=== PATIENT | male | born 1980 | race Hispanic/Latino ===

== ENCOUNTER 2017-06-04 09:21 | Emergency (ER) | payer OTHER ==
[~2017-06-04] VITALS: Ht 167.6 cm; Wt 85.7 kg
[~2017-06-04 09:21] MED LIST: BACTRIM DS1 TAB PO; LISINOPRIL5 MG PO; NORCO1 TA1 PO; ZESTRIL5 M1 PO
[2017-06-04] MEDS ORDERED: MOTRIN800 MG PO (09:45)
[2017-06-04] MEDS ORDERED: ZITHROMAX250 MG PO (09:45)
[2017-06-04] MEDS ORDERED: TESSALON PER100 MG PO (09:45)
[2017-06-04] MEDS ORDERED: PREDNISONE50 MG PO (09:45)
[2017-06-04 10:00] VITALS: BP 120/68
== END 2017-06-04 10:43 | disposition home or self-care (01) | DRG 203 ==
LOC: ED 09:21
DX: J40 Bronchitis, not specified as acute or chronic (principal); R05 Cough; R09.81 Nasal congestion; R09.89 Other specified symptoms and signs involving the circulatory and respiratory systems; R50.9 Fever, unspecified

== ENCOUNTER 2018-02-24 11:03 | Emergency (ER) | payer SELFPAY ==
[~2018-02-24] VITALS: Ht 167.6 cm; Wt 86.0 kg
[~2018-02-24 11:03] MED LIST changes: +MOTRIN800 MG PO; +PREDNISONE50 MG PO; +TESSALON PER100 MG PO; +ZITHROMAX250 MG PO
[2018-02-24 11:53] LABS: INFLUENZA A NONE DETECTED (NONE DETECT); INFLUENZA B NONE DETECTED (NONE DETECT)
[2018-02-24] MEDS ORDERED: TESSALON PER100 MG PO (12:44)
[2018-02-24 12:54] VITALS: BP 139/85
== END 2018-02-24 12:58 | disposition home or self-care (01) | DRG 866 ==
LOC: ED 11:03
DX: B34.9 Viral infection, unspecified (principal); R09.81 Nasal congestion; R05 Cough

== ENCOUNTER 2020-09-08 13:46 | Emergency (ER) | payer OTHER ==
[2020-09-08] MEDS ORDERED: ZOFRAN4 MG/TAB PO (14:25)
[2020-09-08] MEDS ORDERED: ZPAK PO (15:07)
[2020-09-08] MEDS ORDERED: DECADRON2 MG PO (15:07)
[2020-09-08 15:24] VITALS: BP 136/74
== END 2020-09-08 15:24 | disposition home or self-care (01) | DRG 179 ==
LOC: ED 13:46
DX: U07.1 COVID-19 (principal)

== ENCOUNTER 2020-09-15 18:40 | Observation (INO) | payer SELFPAY ==
[~2020-09-15] VITALS: Ht 162.6 cm; Wt 79.0 kg
[~2020-09-15 18:40] MED LIST changes: +DECADRON2 MG PO; +ZOFRAN4 MG/TAB PO; +ZPAK PO
--- NOTE | 2020-09-15 19:05 | NUR ---
PT AMBULATED TO ROOM WITH STEADY GAIT FOR BEDSIDE TRIAGE
--- NOTE | 2020-09-15 19:31 | NUR ---
LAB AT [facility] FOR BLOOD DRAW AND STREP SWAB COLLECTED PT ALREADY TESTED AND KNOWN POSITIVE FOR COVID.
[2020-09-15 19:43] LABS: URINE BILIRUBIN - DIPSTICK NEGATIVE (NEGATIVE); URINE BLOOD DIPSTICK NEGATIVE (NEGATIVE); URINE COLOR YELLOW; URINE GLUCOSE - DIPSTICK >=1000 mg/dL (NEGATIVE); URINE KETONE 40 mg/dL (NEGATIVE); URINE LEUK ESTERASE NEGATIVE (NEGATIVE); URINE PROTEIN - DIPSTICK NEGATIVE (NEG-TRACE); URINE SPECIFIC GRAVITY <=1.005; URINE UROBILINOGEN - DIPSTICK 0.2 E.U./dL (0.2)
[2020-09-15 19:44] LABS: URINE NITRITE - DIPSTICK NEGATIVE (Negative)
[2020-09-15 19:54] LABS: ALBUMIN 4.5 g/dL (3.2-5.0); BUN 8 mg/dL (9-20); BUN/CREATININE RATIO 15 (12-20 (CALC)); CARBON DIOXIDE 22 mmol/l (22-30); CREATININE 0.5 mg/dL (0.7-1.3); GFR > 60 ML/MIN (>=60 (CALC)); GFR FOR AFR.AMER. > 60 ML/MIN (>=60 (CALC)); POTASSIUM 3.8 mmol/l (3.5-5.1); TOTAL PROTEIN 8.2 g/dL (6.3-8.2)
[2020-09-15 19:56] LABS: ALKALINE PHOSPHATASE 175 u/l (38-126); ANION GAP 20 (6-22 (CALC)); BILIRUBIN, TOTAL 1.2 mg/dL (0.0-1.4); CHLORIDE 89 mmol/l (95-108); SGOT/AST 127 u/l (17-59); SODIUM 127 mmol/l (137-146)
--- NOTE | 2020-09-15 20:04 | NUR ---
PT PROVIDED URINE SPECIMEN BUT ALSO VOIDED 900 ML CLEAR YELLO URINE AND STATES THATS FREQUENT AT HOME.
[2020-09-15 20:07] LABS: HEMOGLOBIN 14.2 g/dl (14.0-18.0); IMMATURE GRANULOCYTES 0.5 % (0.0-5.0); MEAN CELL VOLUME 94.3 fL CALC (80.0-100.0); MEAN CORPUSCULAR HGB 32.6 pG CALC (26.0-32.0); MEAN CORPUSCULAR HGB CONC 34.6 g/dL CAL (32.0-36.0); NEUT# 2.92 thou/uL (1.82-7.42); RED BLOOD COUNT 4.35 mill/uL (4.70-6.10); RED CELL DISTRI WIDTH 12.6 % (11.5-15.5)
--- NOTE | 2020-09-15 20:40 | NUR ---
PT RESTING IV STARTED WITHOUT INCIDENT AND IVF INFUSING.NO OTHER COMPLAINTS OFFERED.
--- NOTE | 2020-09-15 21:31 | NUR ---
PT TOLERATING IVF W/O INCIDENT,AWARE OF PLANNED ADMISSION AND NEW ONSET DIABETES. WILL REINFORCE EDUCATION
--- NOTE | 2020-09-15 22:22 | NUR ---
REPORT CALLED TO [facility] ROOM 269 ASSIGNED.
--- NOTE | 2020-09-15 22:55 | NUR ---
PT TRANSPORTED TO MED SURG VIA WHEELCHAIR, ALL BELONGINGS SENT WITH PATIENT.
[2020-09-15 23:15] VITALS: BP 154/89
--- NOTE | 2020-09-16 | NUR ---
PATIENT ADMITTED FROM ER VIA WHEELCHAIR WITH ER STAFF IN ATTENDANCE. PATIENT IS AWAKE ALERT AND ORIENTEDX3. PATIENT ADMITTED FOR NEW ONSET DIAB. SYRIAN SPEAKING BUT DOES UNDERSTAND GERMAN. PATIENT STATES THAT HE CAME TO THE ER TONIGHT BECAUSE HE HAS BEEN HAVING SEVERE THRIST THAT HE COULDN'T QUENCH AND FREQUENT URINATION. ALSO HAS LOST SOME WEIGHT OVER LAST FEW WEEKS. WAS DX WITH COVID LAST WQEEK-FINISHED HIS MEDS AND COVID TESTING IN ER WAS NEG. ACCU-CHECK UPON ARRIVAL TO FLOOR WAS 330. MEDICATED WITH HUMALOG 7UNITS PER SLIDING SCALE COVERAGE PROTOCOL. PATIENT MEDICATED WITH SCHEDULED INSULIN WELL. IVF NS HUNG AND INFUSING VIA LEFT FOREARM SITE ORDERED. PROVIDED TURKEY AND CHEESE SANDWICH WITH DIET SODA AND ORANGE. LUNGS ARE CLEAR. ABD IS SOFT WITH ACTIVE BS-LAST BM WAS 09/15/20. ORIENTED TO ROOM AND SURROUNDINGS. INSTRUCTED ON USE OF NURSE CALL LIGHT SYSTEM, TV REMOTE AND PHONE. SAFETY PRECAUTIONS REINFORCED. CALL LIGHT IN REACH. WILL CONT TO MONITOR.
[2020-09-16 03:30] VITALS: BP 114/67
--- NOTE | 2020-09-16 05:05 | NUR ---
PATIENT APPEARS SLEEPING WITH EYES CLOSED AT THIS TIME. RESPS ARE EVEN AND UNLABORED. IVF PATENT AND INFUSING VIA LEFT FOREARM SITE ORDERED. ACCU-CHECK WAS 276. CALL LIGHT IN REACH. WILL CONT TO MONITOR.
[2020-09-16 05:57] LABS: HEMATOCRIT 37.2 % (39.0-50.0); HEMOGLOBIN 12.8 g/dl (14.0-18.0); IMMATURE GRANULOCYTES 0.5 % (0.0-5.0); MEAN CELL VOLUME 94.7 fL CALC (80.0-100.0); MEAN CORPUSCULAR HGB 32.6 pG CALC (26.0-32.0); MEAN CORPUSCULAR HGB CONC 34.4 g/dL CAL (32.0-36.0); NEUT# 1.54 thou/uL (1.82-7.42); RED BLOOD COUNT 3.93 mill/uL (4.70-6.10); RED CELL DISTRI WIDTH 12.8 % (11.5-15.5)
[2020-09-16 06:18] LABS: ALKALINE PHOSPHATASE 125 u/l (38-126); BILIRUBIN, TOTAL 1.1 mg/dL (0.0-1.4); BUN 7 mg/dL (9-20); BUN/CREATININE RATIO 16 (12-20 (CALC)); CARBON DIOXIDE 25 mmol/l (22-30); CREATININE 0.5 mg/dL (0.7-1.3); GFR > 60 ML/MIN (>=60 (CALC)); GFR FOR AFR.AMER. > 60 ML/MIN (>=60 (CALC)); HDL CHOLESTEROL 14 mg/dL (>=40); POTASSIUM 3.1 mmol/l (3.5-5.1); SGOT/AST 96 u/l (17-59); SODIUM 133 mmol/l (137-146); TOTAL CHOLESTEROL 191 mg/dl (0-199); TOTAL PROTEIN 6.6 g/dL (6.3-8.2)
[2020-09-16 06:28] LABS: ALBUMIN 3.5 g/dL (3.2-5.0); ANION GAP 11 (6-22 (CALC)); CHLORIDE 100 mmol/l (95-108); TOTAL TRIGLYCERIDES 576 mg/dl (30-149)
[2020-09-16 07:18] VITALS: BP 131/78
--- NOTE | 2020-09-16 07:57 | NUR ---
REPORT RECEIVED FROM JET C[place]. PT RESTING IN BED SEMIFOWLERS; ALERT AND ORIENTED X 3. DENIES PAIN AND SOB. RESPIRATIONS EVEN AND UNLABORED ON ROOM AIR. IV FLUIDS INFUSING WITHOUT DIFFICULTY; IV SITE APPEARS HEALTHY. ACCU CHECK 270. ASSESSMENT WNL. POC REVIEWED; PT ENCOURAGED TO VERBALIZE CONCERNS; STATES UNDERSTANDING. SAFETY MEASURES IN PLACE. CALL LIGHT WITHIN REACH.
--- NOTE | 2020-09-16 09:45 | NUR ---
AND KARLENE MARTINEZ AT BEDSIDE.
[2020-09-16] MEDS ORDERED: TRIGLIDE160 MG PO (12:07)
[2020-09-16] MEDS ORDERED: METFORMIN500 M2 PO (12:07)
[2020-09-16] MEDS ORDERED: GLUCOTROL XL10 MG PO (12:07)
--- NOTE | 2020-09-16 12:22 | NUR ---
PT IS INDEPENDENT IN ROOM. NO CHANGES IN CONDITION. 5 UNITS OF SLIDING SCALE COVERAGE GIVEN PRIOR TO LUNCH FOR FSBG OF 298. SAFETY MEASURES IN PLACE. CALL LIGHT WITHIN REACH.
--- NOTE | 2020-09-16 12:34 | NUR ---
IV site discontinued, cath intact. No edema , no redness, voices no discomfort.
--- NOTE | 2020-09-16 12:45 | NUR ---
Discharge instructions given with pastor and education printed in senegalese. Patient verbalizes understanding of same. Discharged in stable condition via Ambulatory to Home. All belongings sent with pt.
== END 2020-09-16 12:45 | disposition home or self-care (01) | DRG 639 ==
LOC: ED 18:40 → ED-I 20:32 → ED 20:44 → MS2 20:45
PROVIDERS: Family Medicine; ADMIT Internal Medicine; ATTEND Internal Medicine
DX: E11.65 Type 2 diabetes mellitus with hyperglycemia (principal); E87.6 Hypokalemia; E78.1 Pure hyperglyceridemia; R74.8 Abnormal levels of other serum enzymes; Z86.16 Personal history of COVID-19; Z20.822 Contact with and (suspected) exposure to COVID-19
CPT/HCPCS: G0378; J1650

== ENCOUNTER 2020-09-27 21:32 | Emergency (ER) | payer SELFPAY ==
[~2020-09-27] VITALS: Ht 162.6 cm; Wt 79.0 kg
[~2020-09-27 21:32] MED LIST changes: +GLUCOTROL XL10 MG PO; +METFORMIN500 M2 PO; +TRIGLIDE160 MG PO
[2020-09-27 22:46] LABS: HEMATOCRIT 39.1 % (39.0-50.0); HEMOGLOBIN 13.1 g/dl (14.0-18.0); IMMATURE GRANULOCYTES 0.2 % (0.0-5.0); MEAN CELL VOLUME 96.5 fL CALC (80.0-100.0); MEAN CORPUSCULAR HGB 32.3 pG CALC (26.0-32.0); MEAN CORPUSCULAR HGB CONC 33.5 g/dL CAL (32.0-36.0); NEUT# 2.33 thou/uL (1.82-7.42); RED BLOOD COUNT 4.05 mill/uL (4.70-6.10); RED CELL DISTRI WIDTH 13.2 % (11.5-15.5)
[2020-09-27 23:04] LABS: ALBUMIN 4.1 g/dL (3.2-5.0); ALKALINE PHOSPHATASE 125 u/l (38-126); BUN 10 mg/dL (9-20); BUN/CREATININE RATIO 13 (12-20 (CALC)); CARBON DIOXIDE 29 mmol/l (22-30); CHLORIDE 95 mmol/l (95-108); CREATININE 0.8 mg/dL (0.7-1.3); GFR > 60 ML/MIN (>=60 (CALC)); GFR FOR AFR.AMER. > 60 ML/MIN (>=60 (CALC)); SGOT/AST 81 u/l (17-59); SODIUM 133 mmol/l (137-146); TOTAL PROTEIN 7.8 g/dL (6.3-8.2)
[2020-09-27 23:16] LABS: ANION GAP 13 (6-22 (CALC)); POTASSIUM 3.9 mmol/l (3.5-5.1)
[2020-09-28] MEDS ORDERED: GENTAMICIN SULF5 ML OD (00:10)
[2020-09-28 01:00] VITALS: BP 130/70
== END 2020-09-28 01:00 | disposition home or self-care (01) | DRG 813 ==
LOC: ED 21:32
PROVIDERS: Emergency Medicine
DX: D69.6 Thrombocytopenia, unspecified (principal); E11.65 Type 2 diabetes mellitus with hyperglycemia; H00.011 Hordeolum externum right upper eyelid; K76.0 Fatty (change of) liver, not elsewhere classified; Z86.16 Personal history of COVID-19

== ENCOUNTER 2024-01-19 16:34 | Emergency (ER) | payer SELFPAY ==
[~2024-01-19] VITALS: Ht 162.6 cm; Wt 62.0 kg
[~2024-01-19 16:34] MED LIST changes: +GENTAMICIN SULF5 ML OD
[2024-01-19 17:00] VITALS: BP 157/97
[2024-01-19 17:30] VITALS: BP 133/88
[2024-01-19] MEDS ORDERED: AMOX/K CLAV875 M1 PO (17:59)
[2024-01-19 18:00] VITALS: BP 129/90
[2024-01-19] MEDS ORDERED: AMOXICILLIN & POT CLAVULANATE 875 MG/TAB PO ONE (18:00)
[2024-01-19 18:16] VITALS: BP 129/90
== END 2024-01-19 18:21 | disposition home or self-care (01) | DRG 159 ==
LOC: ED 16:34
DX: K08.89 Other specified disorders of teeth and supporting structures (principal); K76.0 Fatty (change of) liver, not elsewhere classified